=== PATIENT | female | born 1995 | race African-American/Black ===

== ENCOUNTER 2017-04-21 10:09 | Emergency (ER) | payer BC, MEDICAID ==
[~2017-04-21] VITALS: Ht 162.6 cm; Wt 62.0 kg
[~2017-04-21 10:09] MED LIST: HYDR1CRE TOP
[2017-04-21 10:11] VITALS: BP 122/73; PULSE 84; RESP 20; TEMP 99; O2SAT 100
--- NOTE | 2017-04-21 10:32 | PD ---
HPI . 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 She's been trying to use warm compresses and the areas not getting better. She also tells me that she has some itching in the same area. She noticed some vaginal discharge, and has some pelvic pain. She is on control, and admits to unprotected sex. She denies any other issues. PFSH Past Medical History Diminished Hearing: No ?: Not LMP: last month Past Surgical History Abdominal Surgery: Yes ( A BABY) Social History Alcohol Use: No Tobacco Use: No Substance Use: No Allergies-Medications (Allergen,Severity, Reaction): Coded Allergies: penicillin G (Unverified Allergy, Unknown, 04/01/17) Reported Meds & Prescriptions Reported Meds & Active Scripts Active Macrobid (Nitrofurantoin Monohydrate Macrocrystals) 100 Mg Capsule 100 Mg PO BID 7 Days Flagyl (Metronidazole) 500 Mg Tab 500 Mg PO BID 7 Days Hydrocortisone 1 % Cre 1 Applic TOP BID 7 Days Review of Systems General / Constitutional: No: Fever Eyes: No: Visual changes HENT: No: Headaches Cardiovascular: No: Chest Pain or Discomfort Respiratory: No: Shortness of Breath Gastrointestinal: No: Abdominal Pain Genitourinary: Positive: Pelvic Pain, Discharge, Other (labial swelling), No: Dysuria Musculoskeletal: No: Pain Skin: No Rash Neurologic: No: Weakness Psychiatric: No: Depression Endocrine: No: Polydipsia Hematologic/Lymphatic: No: Easy Bruising Physical Exam Narrative GENERAL: AAO x 3, no acute distress, Well-nourished, well-developed patient. SKIN: Warm and dry. No visible rashes or bruising. HEAD: Normocephalic and atraumatic. EYES: No scleral icterus. No injection or drainage. ENT: No nasal drainage noted. Mucous membranes pink. Airway patent. NECK: Supple, trachea midline. No JVD. CARDIOVASCULAR: Regular rate and rhythm without murmurs, gallops, or rubs. RESPIRATORY: Breath sounds equal bilaterally. No accessory muscle use. No rhonchi or rales. GASTROINTESTINAL: Abdomen soft, non-tender, nondistended. PELVIC: , left outer labia very minimal swelling without abscess, mild thick white discharge, no cervical motion tenderness EXTREMITIES: No cyanosis or edema. BACK: No obvious deformity. NEURO: CN II-12 intact, PSYCH: AAO x 3, normal affect. Data Data Last Documented VS Vital Signs Date Time Temp Pulse Resp B/P (MAP) Pulse Ox O2 Delivery O2 Flow Rate FiO2 04/21/17 10:11 99.0 84 20 122/73 (89) 100 Room Air Orders Orders Gc And Chlamydia Pcr (04/21/17 10:22) Wet Prep Profile (04/21/17 10:22) Urinalysis - C+S If Indicated (04/21/17 10:22) Urine Culture (04/21/17 10:54) Labs Laboratory Tests Test 04/21/17 10:30 04/21/17 10:54 Clue Cells (Wet Prep) PRESENT Vaginal Trichomonas (Wet Prep) NONE SEEN Vaginal Yeast (Wet Prep) NONE SEEN Urine Color YELLOW Urine Turbidity HAZY Urine pH 6.5 Urine Specific [place] 1.028 Urine Protein TRACE mg/dL Urine Glucose (UA) NEG mg/dL Urine Ketones NEG mg/dL Urine Occult Blood NEG Urine Nitrite NEG Urine Bilirubin NEG Urine Urobilinogen LESS THAN 2.0 MG/DL Urine Leukocyte Esterase MOD Urine RBC 1 /hpf Urine WBC 11 /hpf Urine Squamous Epithelial Cells 2 /hpf Urine Bacteria RARE /hpf Urine Mucus MANY /lpf Microscopic Urinalysis Comment CULTURE INDICATED MDM Medical Decision Making Medical Screen Exam Complete: Yes Emergency Medical Condition: Yes Medical Record Reviewed: Yes Differential Diagnosis Candidiasis, gonorrhea, chlamydia, bacterial vaginosis, trichomoniasis, Bartholin's cyst, folliculitis Narrative Course 21-year-old female here with multiple complaints of her genitals. On examination she does not have a Bartholin's cyst. There is no area for incision and drainage. I've advised her to use warm compresses to see if a head forms, and then return to the ED for incision and drainage. She does have some slight vaginal discharge, that appears yeast like or possible BV. Cultures have been sent. Laboratory Tests Test 04/21/17 10:30 04/21/17 10:54 Clue Cells (Wet Prep) PRESENT Vaginal Trichomonas (Wet Prep) NONE SEEN Vaginal Yeast (Wet Prep) NONE SEEN Urine Color YELLOW Urine Turbidity HAZY Urine pH 6.5 Urine Specific [place] 1.028 Urine Protein TRACE mg/dL Urine Glucose (UA) NEG mg/dL Urine Ketones NEG mg/dL Urine Occult Blood NEG Urine Nitrite NEG Urine Bilirubin NEG Urine Urobilinogen LESS THAN 2.0 MG/DL Urine Leukocyte Esterase MOD Urine RBC 1 /hpf Urine WBC 11 /hpf Urine Squamous Epithelial Cells 2 /hpf Urine Bacteria RARE /hpf Urine Mucus MANY /lpf Microscopic Urinalysis Comment CULTURE INDICATED Patient appears to have mitral vaginosis and possible urinary tract infection. I discussed the results with her and she tells me that she's had UTIs in the past. We discussed prophylactic treatment for chlamydia and gonorrhea, however she has declined. She would rather be notified if there are any abnormalities and return for treatment. I have provided her with a prescription for Flagyl for bacterial vaginosis. Given her Macrobid for urinary tract infection. I advised her to follow-up with her school clinic. Patient verbalized understanding of instructions, questions were answered, and thanked me for their care. I advised them if their condition worsens, please return to the nearest emergency room for further care. Diagnosis Primary Impression: Bacterial vaginosis Additional Impression: UTI (urinary tract infection) Qualified Codes: N30.00 - Acute cystitis without hematuria Patient Instructions: General Instructions Additional Instructions: Follow up with your school clinic. Try to establish with a local home administrator for a pap smear. You can try to use warm compresses to the area to see if a head develops. If it does, you can come back to the emergency department to have it drained. Med/Other Pt SpecificInfo: Prescription(s) given Scripts Nitrofurantoin Monohydrate Macrocrystals (Macrobid) 100 Mg Capsule 100 MG PO BID for Infection for 7 Days, CAP 0 Refills Prov: Yen Dunne MD 04/21/17 Metronidazole (Flagyl) 500 Mg Tab 500 MG PO BID for Infection for 7 Days, TAB 0 Refills Prov: Yen Dunne MD 04/21/17 Disposition: 01 DISCHARGE HOME Condition: Stable Kamla Lebron Apr 21, 2017 10:32
[2017-04-21 11:22] LABS: BACTERIA, URINE RARE /hpf; BLOOD, URINE NEG (NEG); COMMENT (UR) CULTURE INDICATED; CULTURE IF INDICATED CULTURE INDICATED; GLUCOSE,URINE NEG (NEG); KETONE, URINE NEG (NEG); MUCUS URINE MANY /lpf (OCC); NITRITE,URINE NEG (NEG); PH, URINE 6.5 (5.0-8.5); SQUAMOUS EPITHELIAL CELL URINE 2 /hpf (0-5); URINE COLOR YELLOW (YELLW/STRAW)
[2017-04-21] MEDS ORDERED: MACR100C2 PO (11:31)
[2017-04-21] MEDS ORDERED: METR-1 PO (11:31)
[2017-04-21 12:32] LABS: CHLAMYDIA PCR DETECTED (NOT DETECT); NEISSERIA PCR NOT DETECTED (NOT DETECT)
== END 2017-04-21 12:24 | disposition home or self-care (01) ==
LOC: NEPD 10:09
DX: N76.0 Acute vaginitis (principal); N30.00 Acute cystitis without hematuria; B96.89 Other specified bacterial agents as the cause of diseases classified elsewhere
CPT/HCPCS: 81001; 87086; 87210; 87491; 87591; 99284